=== PATIENT | male | born 1945 | race African-American/Black ===

== ENCOUNTER 2020-07-24 12:41 | Inpatient (IN) | payer MEDICARE ==
[2020-07-24 14:17] LABS: #Basophils 0.1 thou/uL (0.0-0.2); #Monocytes 0.5 thou/uL (0.11-0.59); #Neutrophils 2.4 thou/uL (1.40-6.50); %Basophils 1.1 % (0.0-1.0); %Eosinophils 0.6 % (0.0-10.0); %Lymphocytes 40.4 % (21.0-51.0); %Monocytes 9.7 % (0.0-10.0); %Neutrophils 48.1 % (42.0-75.0); Hemoglobin 16.1 g/dL (14.0-18.0); Mean Corpuscular HGB CONC 33.6 g/dL (32.0-36.0); Mean Corpuscular Hemoglobin 29.2 pg (27.0-31.0); Mean Corpuscular Volume 87.1 fL (78.0-98.0); Mean Platelet Volume 8.9 fL (7.4-10.4); Platelet Count 195 thou/uL (130-400); RBC Distribution Width 15.6 % (11.5-14.5); White Blood Cell (WBC) Count 5.1 thou/uL (4.8-10.8)
[2020-07-24 14:28] LABS: ALT (SGPT) 68 U/L (8-55); AST (SGOT) 26 U/L (5-34); Albumin 3.4 g/dL (3.4-4.8); Alkaline Phosphatase 128 U/L (40-110); Anion Gap 16 mmol/L (10-20); BUN (Urea Nitrogen) 18 mg/dL (8.4-25.7); Calc. Creatinine Clearance 0 mL/min (70-130); Calcium 8.4 mg/dL (7.8-10.44); Carbon Dioxide 26 mmol/L (23-31); Chloride 105 mmol/L (98-107); Globulin 3.3 g/dL (2.4-3.5); Glucose 202 mg/dL (83-110); Lipase 46 U/L (8-78); Potassium 4.2 mmol/L (3.5-5.1); Protein, Total 6.7 g/dL (5.8-8.1); Sodium 143 mmol/L (136-145)
[2020-07-24 14:57] LABS: CKMB 1.9 ng/mL (0-6.6)
[2020-07-24] MEDS ORDERED: Nitroglycerin 2% Ointment 1 INCH/1 GM Packet ONE (15:15)
[2020-07-24] MEDS ORDERED: Aspirin Chewable 81 MG TAB ONE (15:15)
[2020-07-24] MEDS ORDERED: Nitroglycerin 0.4 MG TAB (25 Tab Bottle) SL PRN (16:22)
--- NOTE | 2020-07-24 16:28 | PDOC.HHP ---
Hospitalist HPI Chest pain History of Present Illness: Patient is a 75-year-old male who presented via the emergency department. Malou white apparently may have some difficulty with his history. He has paperwork indicating he was admitted to [facility] from July 11 through July 20, 2000. He was diagnosed with Covid pneumonia and hypoxia. He was discharged to home. Currently he says he is doing fine. Denies any shortness of breath or chest pain. He says he only came to the ER because he was supposed to get a checkup and make sure he was taking the right medicines. According to the ER physician the patient reported chest pain. He denies having had any chest pain at this time. According to the triage notes the patient presented with worsening Covid symptoms with increased shortness of breath. He was wearing nasal cannula at 2 L which is apparently new from his recent hospitalization. ED Course: Patient's nurse noted that when she discontinued his oxygen he was able to m aintain his oxygen saturation but his respirations increased to 28/min. Also in the emergency department the patient received an aspirin and Nitropaste. His initial troponin was 0.042. Glucose was 202. EKG revealed inferior Q waves and a left anterior fascicular block Allergies/Adverse Reactions: Allergy/AdvReac Type Severity Reaction Status Date / Time No Known Drug Allergies Allergy Verified 11/15/13 17:45 Home Medications: Medication Instructions Recorded Confirmed Type Atorvastatin Calcium [Lipitor] 80 mg PO DAILY 11/15/13 11/15/13 History Clopidogrel Bisulfate [Plavix] 75 mg PO DAILY 11/15/13 11/15/13 History Insulin Lispro Protamin/Lispro 0 unit SC BID-AC 11/15/13 11/15/13 History [HumaLOG Mix 75/25 KwikPen] Lisinopril 40 mg PO BID 11/15/13 11/15/13 History Metoprolol Succinate [Toprol XL] 50 mg PO DAILY 11/15/13 11/15/13 History metFORMIN XR [Glucophage XR] 2,000 mg PO QPM-WM 11/15/13 11/15/13 History Aspirin 325 mg PO DAILY #0 tab 11/17/13 Rx Comments: Updated list: aspirin oral MonJul 24, 2020 16:15 VANESSA Kuo, Samira TABLET : Strength - 81 mg : ORAL Patient Dose: 1 tab(s) Oral once a day. atorvastatin MonJul 24, 2020 16:15 VANESSA Kuo Kimberly TABLET : Strength - 80 mg : ORAL Patient Dose: 80 mg Oral once a day. Plavix MonJul 24, 2020 16:15 VANESSA Kuo Kimberly TABLET : Strength - 75 mg : ORAL Patient Dose: 75 mg Oral once a day. metFORMIN MonJul 24, 2020 16:15 VANESSA Kuo Kimberly TABLET : Strength - 500 mg : ORAL Patient Dose: 1000 mg Oral 2 times a day. losartan MonJul 24, 2020 16:16 VANESSA Kuo Kimberly tablet : Strength - 25 mg : ORAL Patient Dose: 25 mg Oral 2 times a day. Toprol XL MonJul 24, 2020 16:17 VANESSA Kuo Kimberly tablet extended release 24 hr : Strength - 50 mg : ORAL Patient Dose: 50 mg Oral once a day. HumaLOG Mix 75-25 KwikPen MonJul 24, 2020 16:18 VANESSA Kuo Kimberly insulin pen : Strength - 100 unit/mL (75-25) : [3 mL(s)] : SUBCUTANEOUS Patient Dose: 45 units Subcutaneous once a day (in the morning).45u with breakfast, 20u at bedtime. Past History: PMHx: Coronary artery disease, diabetes mellitus, hypertension, hyperlipidemia, history of CVA PSHx: Coronary artery bypass graft x3 vessels in 1977 FHx: Hypertension, diabetes, stroke Social: History of tobacco abuse smoking 1 pack/day, social alcohol use. . Hospitalist Exam General Appearance: NAD, awake alert Neck: supple, symmetric, no JVD, no thyromegaly, no lymphadenopathy, no carotid bruit Heart: RRR, no murmur, no gallops, no rubs, normal peripheral pulses Respiratory: CTAB, no wheezes, no rales, no ronchi, normal chest expansion, no tachypnea, normal percussion Gastrointestinal: soft, non-tender, non-distended, normal bowel sounds, no palp able masses, no hepatomegaly, no splenomegaly, no bruit Extremities: no cyanosis, no clubbing, no edema Skin: normal turgor Neurological: cranial nerve grossly intact, normal sensation to touch, no weakness, no focal deficits, no new deficit Musculoskeletal: normal tone, normal strength, no muscle wasting Psychiatric: normal affect, normal behavior Hospitalist Results Result Diagrams: 07/24/20 13:20 07/24/20 13:20 Lab results: Laboratory Last Values WBC 5.1 thou/uL (4.8-10.8) 07/24/20 13:20 RBC 5.50 mill/uL (4.70-6.10) 07/24/20 13:20 Hgb 16.1 g/dL (14.0-18.0) 07/24/20 13:20 Hct 47.9 % (42.0-52.0) 07/24/20 13:20 MCV 87.1 fL (78.0-98.0) 07/24/20 13:20 MCH 29.2 pg (27.0-31.0) 07/24/20 13:20 MCHC 33.6 g/dL (32.0-36.0) 07/24/20 13:20 RDW 15.6 % (11.5-14.5) H 07/24/20 13:20 Plt Count 195 thou/uL (130-400) 07/24/20 13:20 MPV 8.9 fL (7.4-10.4) 07/24/20 13:20 Neutrophils % 48.1 % (42.0-75.0) 07/24/20 13:20 Lymphocytes % 40.4 % (21.0-51.0) 07/24/20 13:20 Monocytes % 9.7 % (0.0-10.0) 07/24/20 13:20 Eosinophils % 0.6 % (0.0-10.0) 07/24/20 13:20 Basophils % 1.1 % (0.0-1.0) H 07/24/20 13:20 Neutrophils # 2.4 thou/uL (1.40-6.50) 07/24/20 13:20 Lymphocytes # 2.0 thou/uL (1.20-3.40) 07/24/20 13:20 Monocytes # 0.5 thou/uL (0.11-0.59) 07/24/20 13:20 Eosinophils # 0.0 thou/uL (0.0-0.7) 07/24/20 13:20 Basophils # 0.1 thou/uL (0.0-0.2) 07/24/20 13:20 Sodium 143 mmol/L (136-145) 07/24/20 13:20 Potassium 4.2 mmol/L (3.5-5.1) 07/24/20 13:20 Chloride 105 mmol/L (98-107) 07/24/20 13:20 Carbon Dioxide 26 mmol/L (23-31) 07/24/20 13:20 Anion Gap 16 mmol/L (10-20) 07/24/20 13:20 BUN 18 mg/dL (8.4-25.7) 07/24/20 13:20 Creatinine 1.21 mg/dL (0.7-1.3) 07/24/20 13:20 Estimated GFR (MDRD) 71 07/24/20 13:20 Glucose 202 mg/dL (83-110) H 07/24/20 13:20 Calcium 8.4 mg/dL (7.8-10.44) 07/24/20 13:20 Total Bilirubin 1.0 mg/dL (0.2-1.2) 07/24/20 13:20 AST 26 U/L (5-34) 07/24/20 13:20 ALT 68 U/L (8-55) H 07/24/20 13:20 Alkaline Phosphatase 128 U/L (40-110) H 07/24/20 13:20 CK-MB (CK-2) 1.9 ng/mL (0-6.6) 07/24/20 13:20 Troponin I 0.042 ng/mL (< 0.028) H 07/24/20 13:20 Serum Total Protein 6.7 g/dL (5.8-8.1) 07/24/20 13:20 Albumin 3.4 g/dL (3.4-4.8) 07/24/20 13:20 Globulin 3.3 g/dL (2.4-3.5) 07/24/20 13:20 Albumin/Globulin Ratio 1.0 g/dL (1.2-2.2) L 07/24/20 13:20 Lipase 46 U/L (8-78) 07/24/20 13:20 EKG Status: image reviewed by me (Normal sinus rhythm. Left anterior fascicular block. Inferior Q waves.) Hospitalist H&P A/P (1) Chest pain Code(s): R07.9 - CHEST PAIN, UNSPECIFIED Status: Acute (2) Acute respiratory failure with hypoxia Code(s): J96.01 - ACUTE RESPIRATORY FAILURE WITH HYPOXIA Status: Acute (3) Coronary artery disease Code(s): I25.10 - ATHSCL HEART DISEASE OF [place] CORONARY ARTERY W/O ANG PCTRS Status: Acute (4) Hypertension Code(s): I10 - ESSENTIAL (PRIMARY) HYPERTENSION Status: Acute (5) Hyperlipidemia Code(s): E78.5 - HYPERLIPIDEMIA, UNSPECIFIED Status: Acute Plan: Chest pain: Patient's reporting of chest pain has apparently been variable in the emergency department. He told the ED physician that he was having some chest pain. He told the ER nurse and me that he did not have any chest pain. Attempted to call his to see if we can get some clarity but the number we have in the computer is not working. He has an equivocal troponin that is indeterminate. Apparently this was true during his recent admission to [facility] as well. Patient will be placed in observation status as he has a heart score of around 5. We will check serial troponins. Keep him on telemetry. Given his Covid positive status will not anticipate performing a stress test. In the setting of a patient who had coronary bypass graft in 1977 there are certainly possibilities of some underlying coronary disease. His EKG appears to show some chronic abnormalities although cannot confirm that the left anterior fascicular block is chronic. If the patient rules out for ischemia and has no further evidence of chest pain would suspect he can be discharged from that perspective. Acute hypoxic respiratory failure: Part of his recent Covid pneumonia diagnosis. Apparently he was discharged on the first from [facility] on 2 L nasal cannula. Patient apparently maintains his saturations adequately without oxygen but has some increased work of breathing. We will continue to monitor him overnight on the oxygen. If he maintains his sats adequately can likely discharge on the same 2 L nasal cannula. Coronary artery disease: Continue aspirin, statin. Hypertension: Continue p.o. beta-erasto and ARB. Diabetes mellitus: Continue with his home dose of Metformin and insulin. Diabetic diet. Continue Accu-Cheks.
[2020-07-24 16:47] LABS: Troponin I 0.045 ng/mL (< 0.028)
--- NOTE | 2020-07-24 17:00 | RAD ---
PORTABLE CHEST: Date: 07/24/2020 HISTORY: Worsening COVID symptoms. COMPARISON: 10/30/2014 study is the most recent exam available for comparison. FINDINGS: Heart size is borderline considering portable technique with postop sternotomy change. Bilateral lung infiltrates are seen. IMPRESSION: Bilateral lung infiltrates consistent with COVID pneumonia. POS: OFF
[2020-07-24] MEDS ORDERED: Dextrose 5% in Water 1,000 ML IV PRN (17:03)
[2020-07-24] MEDS ORDERED: Dextrose 50% Abboject 50 ML SYRINGE SLOW IVP PRN (17:03)
[2020-07-24] MEDS: Metoprolol Tartrate 25 MG TAB PO SCH (20:07)
[2020-07-24] MEDS: Acetaminophen 325 MG TAB PO PRN (20:07)
[2020-07-24 20:08] LABS: Troponin I 0.036 ng/mL (< 0.028)
[2020-07-24 22:43] VITALS: BMI 28.1
[2020-07-25] MEDS: HumaLOG 300 UNITS/3 ML VIAL SC PRN ×4 (10:46→21:12)
[2020-07-25] MEDS: Enoxaparin Sodium 40 MG/0.4 ML SYRINGE SC SCH (10:48)
[2020-07-25] MEDS: Aspirin Chewable 81 MG TAB PO SCH (10:48)
[2020-07-25] MEDS: Metoprolol Tartrate 25 MG TAB PO SCH ×2 (10:49→20:06)
[2020-07-25] MEDS: Clopidogrel Bisulfate 75 MG TAB PO SCH (10:49)
--- NOTE | 2020-07-25 16:33 | PDOC.HOSPP ---
- Subjective Encounter Date: 07/25/20 Encounter Time: 14:45 Subjective: awake, responds to questions but is not accurate. is eating his food, not in distress, on nasal canula O2, moves all extremities - Objective Vital Signs & Weight: Vital Signs (12 hours) Temp Pulse Resp BP BP Pulse Ox 07/25/20 16:00 98.4 F 63 18 144/76 H 100 07/25/20 11:16 98.0 F 71 18 155/87 H 100 07/25/20 08:00 98.5 F 74 18 124/77 99 07/25/20 07:47 98.5 F 74 18 124/77 99 Weight Admit Weight 174 lb Weight 174 lb 9.698 oz I&O: 07/24/20 07/25/20 07/26/20 06:59 06:59 06:59 Intake Total 240 250 Output Total 500 250 Balance -260 0 Result Diagrams: 07/24/20 13:20 07/24/20 13:20 Additional Labs: Accuchecks 07/25/20 07/25/20 07/25/20 15:58 11:16 07:46 POC Glucose 151 H 209 H 216 H 07/24/20 20:35 POC Glucose 106 H Hospitalist ROS - Medication Medications: Active Medications Generic Name Dose Route Start Last Admin Trade Name Freq PRN Reason Stop Dose Admin Acetaminophen 650 mg 07/24/20 16:20 07/24/20 20:07 Acetaminophen 325 Mg Tab PO 650 mg Q4H PRN Administration Headache/Fever/Mild Pain (1-3) Aspirin 81 mg 07/25/20 09:00 07/25/20 10:48 Aspirin Chewable 81 Mg Tab PO 81 mg DAILY ENRRIQUE Administration Clopidogrel Bisulfate 75 mg 07/25/20 09:00 07/25/20 10:49 Clopidogrel Bisulfate 75 Mg Tab PO 75 mg DAILY ENRRIQUE Administration Enoxaparin Sodium 40 mg 07/25/20 09:00 07/25/20 10:48 Enoxaparin Sodium 40 Mg/0.4 Ml Syringe SC 40 mg 0900 ENRRIQUE Administration Insulin Human Lispro 0 units 07/24/20 17:03 07/25/20 12:48 Humalog 300 Units/3 Ml Vial SC 3 unit .MILD SLIDING SCALE PRN Administration Mild Correctional Scale Metoprolol Tartrate 25 mg 07/24/20 21:00 07/25/20 10:49 Metoprolol Tartrate 25 Mg Tab PO 25 mg BID ENRRIQUE Administration Hospitalist Exam Vitals: Vital Signs (12 hours) Temp Pulse Resp BP BP Pulse Ox 07/25/20 16:00 98.4 F 63 18 144/76 H 100 07/25/20 11:16 98.0 F 71 18 155/87 H 100 07/25/20 08:00 98.5 F 74 18 124/77 99 07/25/20 07:47 98.5 F 74 18 124/77 99 Weight Admit Weight 174 lb Weight 174 lb 9.698 oz General Appearance: awake alert Eye: PERRL, anicteric sclera ENT: no oropharyngeal lesions, moist mucosa Neck: supple, no JVD Heart: RRR, no murmur Respiratory: no wheezes, no rales, rhonchi Gastrointestinal: soft, non-tender, non-distended, normal bowel sounds Extremities: no cyanosis, no edema Neurological: cranial nerve grossly intact, no focal deficits Hosp A/P (1) Acute respiratory failure with hypoxia Code(s): J96.01 - ACUTE RESPIRATORY FAILURE WITH HYPOXIA Status: Acute (2) Pneumonia due to COVID-19 virus Code(s): U07.1 - COVID-19; J12.82 - PNEUMONIA DUE TO CORONAVIRUS DISEASE 2019 Status: Acute (3) DM type 2 (diabetes mellitus, type 2) Status: Chronic Qualifiers: 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 transplanted heart: [place] heart Associated angina: without angina Qualified Code(s): I25.810 - Atherosclerosis of coronary artery bypass graft(s) without angina pectoris (6) Hyperlipidemia Code(s): E78.5 - HYPERLIPIDEMIA, UNSPECIFIED Status: Chronic Qualifiers: Hyperlipidemia type: unspecified Qualified Code(s): E78.5 - Hyperlipidemia, unspecified (7) Hypertension Code(s): I10 - ESSENTIAL (PRIMARY) HYPERTENSION Status: Chronic Qualifiers: Hypertension type: essential hypertension Qualified Code(s): I10 - Essential (primary) hypertension (8) Cerebrovascular accident Code(s): I63.9 - CEREBRAL INFARCTION, UNSPECIFIED Status: Chronic Qualifiers: CVA mechanism: thrombosis Laterality of affected vessel: left (9) Acute encephalopathy Code(s): G93.40 - ENCEPHALOPATHY, UNSPECIFIED Status: Acute Plan: likely sec to covid 19 virus - Plan will get CT brain wo contrast, he is not fully oriented, unclear his baseline tried calling with all the numbers available on [employer] and [phone] provided by staff, none which work staff to ascertain from if he is at baseline, has prior h/o cva in the left internal capsule he was hospitalized at [facility] between jul 11 and , has home O2, he is not sure if he has alb inh and steroids continue asp, plavix, lipitor, toprol xl, losartan, humalog 75/25 and metformin as before hemostable mobilize as tolerated with PT dc plan based on confirmation of cognitive issues with and patients baseline.
--- NOTE | 2020-07-25 17:42 | CT ---
CT OF THE BRAIN WITHOUT CONTRAST: 07/25/20 INDICATION: History of CVA, encephalopathy and COVID positive diagnosis. COMPARISON: MR of the brain without contrast dated 11/16/13. FINDINGS: There is generalized cerebral and cerebellar atrophy. There are remote lacunar infarctions involving the left caudate head, bilateral globus pallidi as well as the paramedian luis. There is moderate ch ronic small vessel white matter ischemic change. Septum pellucidum and third ventricle are midline. N o definite acute infarct, hemorrhage, or hydrocephalus is present. Skull and intracranial soft tissue s appear within normal limits. IMPRESSION: 1. No acute intracranial abnormality. 2. Chronic ischemic change as above. POS: BH
[2020-07-25] MEDS: Acetaminophen 325 MG TAB PO PRN (20:06)
[2020-07-26] MEDS: HumaLOG 300 UNITS/3 ML VIAL SC PRN ×4 (06:06→21:24)
[2020-07-26] MEDS: Enoxaparin Sodium 40 MG/0.4 ML SYRINGE SC SCH (10:14)
[2020-07-26] MEDS: Losartan 25 MG TAB PO SCH (10:14)
[2020-07-26] MEDS: Clopidogrel Bisulfate 75 MG TAB PO SCH (10:14)
[2020-07-26] MEDS: Aspirin Chewable 81 MG TAB PO SCH (10:14)
[2020-07-26] MEDS: Metoprolol Tartrate 25 MG TAB PO SCH ×2 (10:15→21:22)
--- NOTE | 2020-07-26 15:20 | PDOC.HOSPP ---
- Subjective Encounter Date: 07/26/20 Encounter Time: 13:30 Subjective: feels good, no complaints has not ambulated yet, says he can walk with walker - Objective Vital Signs & Weight: Vital Signs (12 hours) Temp Pulse Resp BP BP Pulse Ox 07/26/20 11:40 97.5 F L 69 22 H 124/67 100 07/26/20 09:00 98.1 F 79 20 130/71 100 07/26/20 08:00 98.1 F 79 20 130/71 100 07/26/20 04:06 100 07/26/20 04:00 97.9 F 67 16 141/85 H 96 Weight Admit Weight 174 lb Weight 174 lb 9.698 oz I&O: 07/25/20 07/26/20 07/27/20 06:59 06:59 06:59 Intake Total 240 1150 Output Total 500 1580 Balance -260 -430 Result Diagrams: 07/24/20 13:20 07/24/20 13:20 Additional Labs: Accuchecks 07/26/20 07/26/20 07/25/20 11:39 05:52 20:10 POC Glucose 271 H 187 H 279 H 07/25/20 15:58 POC Glucose 151 H Hospitalist ROS - Medication Medications: Active Medications Generic Name Dose Route Start Last Admin Trade Name Charbelq PRN Reason Stop Dose Admin Acetaminophen 650 mg 07/24/20 16:20 07/25/20 20:06 Acetaminophen 325 Mg Tab PO 650 mg Q4H PRN Administration Headache/Fever/Mild Pain (1-3) Aspirin 81 mg 07/25/20 09:00 07/26/20 10:14 Aspirin Chewable 81 Mg Tab PO 81 mg DAILY ENRRIQUE Administration Clopidogrel Bisulfate 75 mg 07/25/20 09:00 07/26/20 10:14 Clopidogrel Bisulfate 75 Mg Tab PO 75 mg DAILY ENRRIQUE Administration Enoxaparin Sodium 40 mg 07/25/20 09:00 07/26/20 10:14 Enoxaparin Sodium 40 Mg/0.4 Ml Syringe SC 40 mg 0900 ENRRIQUE Administration Insulin Human Lispro 0 units 07/24/20 17:03 07/26/20 12:38 Humalog 300 Units/3 Ml Vial SC 4 unit .MILD SLIDING SCALE PRN Administration Mild Correctional Scale Losartan Potassium 50 mg 07/26/20 09:00 07/26/20 10:14 Losartan 25 Mg Tab PO 50 mg DAILY ENRRIQUE Administration Metoprolol Tartrate 25 mg 07/24/20 21:00 07/26/20 10:15 Metoprolol Tartrate 25 Mg Tab PO 25 mg BID ENRRIQUE Administration Hospitalist Exam Vitals: Vital Signs (12 hours) Temp Pulse Resp BP BP Pulse Ox 07/26/20 11:40 97.5 F L 69 22 H 124/67 100 07/26/20 09:00 98.1 F 79 20 130/71 100 07/26/20 08:00 98.1 F 79 20 130/71 100 07/26/20 04:06 100 07/26/20 04:00 97.9 F 67 16 141/85 H 96 Weight Admit Weight 174 lb Weight 174 lb 9.698 oz General Appearance: awake alert Eye: PERRL, anicteric sclera ENT: no oropharyngeal lesions, moist mucosa Neck: supple, no JVD Heart: RRR, no murmur Respiratory: no wheezes, no rales Gastrointestinal: soft, non-tender, non-distended, normal bowel sounds Extremities: no cyanosis, no edema Neurological: cranial nerve grossly intact, no focal deficits Hosp A/P (1) Acute respiratory failure with hypoxia Code(s): J96.01 - ACUTE RESPIRATORY FAILURE WITH HYPOXIA Status: Acute (2) Pneumonia due to COVID-19 virus Code(s): U07.1 - COVID-19; J12.82 - PNEUMONIA DUE TO CORONAVIRUS DISEASE 2019 Status: Acute (3) DM type 2 (diabetes mellitus, type 2) Status: Chronic Qualifiers: 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 transplanted heart: [place] heart Associated angina: without angina Qualified Code(s): I25.810 - Atherosclerosis of coronary artery bypass graft(s) without angina pectoris (6) Hyperlipidemia Code(s): E78.5 - HYPERLIPIDEMIA, UNSPECIFIED Status: Chronic Qualifiers: Hyperlipidemia type: unspecified Qualified Code(s): E78.5 - Hyperlipidemia, unspecified (7) Hypertension Code(s): I10 - ESSENTIAL (PRIMARY) HYPERTENSION Status: Chronic Qualifiers: Hypertension type: essential hypertension Qualified Code(s): I10 - Essential (primary) hypertension (8) Cerebrovascular accident Code(s): I63.9 - CEREBRAL INFARCTION, UNSPECIFIED Status: Chronic Qualifiers: CVA mechanism: thrombosis Laterality of affected vessel: left (9) Acute encephalopathy Code(s): G93.40 - ENCEPHALOPATHY, UNSPECIFIED Status: Acute - Plan CT brain wo contrast shows no ac cva, has shrinking of his cerebrum and old cva in left caudate, globus pallidus and luis area, no ac infarct. spoke to [phone] and gave full updates, she cant come to pick him up today and her son will pick him up in am, is recovering from covid. he was hospitalized at [facility] jul 11 and , has home O2, mentions that steroids kind off put him off balance with talking inappropriately, incontinence etc. continue asp, plavix, lipitor, toprol xl, losartan, humalog 75/25 and metformin as before hemostable mobilize as tolerated with PT dc plan in am, CM to activate his tx HH with PT/OT in am, PCP is
[2020-07-26] MEDS: Acetaminophen 325 MG TAB PO PRN (21:21)
[2020-07-27] MEDS: HumaLOG 300 UNITS/3 ML VIAL SC PRN ×2 (05:58→10:55)
[2020-07-27] MEDS: Enoxaparin Sodium 40 MG/0.4 ML SYRINGE SC SCH (09:45)
[2020-07-27] MEDS: Clopidogrel Bisulfate 75 MG TAB PO SCH (09:46)
[2020-07-27] MEDS: Aspirin Chewable 81 MG TAB PO SCH (09:46)
[2020-07-27] MEDS: Losartan 25 MG TAB PO SCH (09:46)
[2020-07-27] MEDS: Metoprolol Tartrate 25 MG TAB PO SCH (09:46)
[2020-07-27 10:59] VITALS: BP 121/57; TEMP 97.8
--- NOTE | 2020-07-27 17:29 | DIS ---
DATE OF ADMISSION: 07/26/2020 DATE OF DISCHARGE: 07/27/2020 DISCHARGE DISPOSITION: To home. PRIMARY DISCHARGE DIAGNOSES: Acute metabolic encephalopathy secondary to COVID-19 virus, pneumonia due to COVID-19 virus, acute respiratory failure with hypoxia, needing 2 L nasal cannula oxygen secondary to COVID-19 pneumonia. SECONDARY DISCHARGE DIAGNOSES: Diabetes mellitus type 2, coronary artery disease, dyslipidemia, hypertension, and prior history of CVA. PROCEDURES DONE DURING HOSPITALIZATION: CT brain without contrast done showed no acute CVA. He has signs of atrophy of his cerebrum, and old CVA was seen in the left caudate, globus pallidus, and luis area with no acute infarct noted. HOSPITAL COURSE: The patient was hospitalized from July 11 to July 20 at [facility] in [place] for COVID-19 pneumonia and was prescribed home oxygen along with [facility] arranged. Prior to Home Health resuming service, the patient was rehospitalized here for acute metabolic encephalopathy with being concerned for the steroids causing it. In view of this, his steroids were discontinued. He was closely monitored on the floor. He is saturating well with current oxygen. Case Management consultation was requested for activating his [facility] with PT and OT. I have given complete updates to the patient's , Ms. Mcnulty, on the and the plan was to discharge him today when his son will come to pick him up today. Please note, I have seen and examined the patient on the day of discharge. Prior to discharge, he is ambulating and eating well. Job ID: [id number]
== END 2020-07-27 13:23 | disposition home health service (06) | DRG 177 ==
LOC: SUATTDRO 12:41 → ERS 12:41 → 2SW 15:23 → OBSVTOIN 07-26 11:54
PROVIDERS: ADMIT Internal Medicine; ATTEND Internal Medicine
DX: U07.1 COVID-19 (principal); J96.01 Acute respiratory failure with hypoxia; J12.82 Pneumonia due to coronavirus disease 2019; G93.41 Metabolic encephalopathy; I25.810 Atherosclerosis of coronary artery bypass graft(s) without angina pectoris; E11.9 Type 2 diabetes mellitus without complications; I10 Essential (primary) hypertension; E78.5 Hyperlipidemia, unspecified; Z79.82 Long term (current) use of aspirin; Z79.02 Long term (current) use of antithrombotics/antiplatelets; Z79.4 Long term (current) use of insulin; Z86.73 Personal history of transient ischemic attack (TIA), and cerebral infarction without residual deficits; Z95.1 Presence of aortocoronary bypass graft; Z83.3 Family history of diabetes mellitus; Z82.3 Family history of stroke; Z82.49 Family history of ischemic heart disease and other diseases of the circulatory system; F17.210 Nicotine dependence, cigarettes, uncomplicated
CPT/HCPCS: 36416; 70450; 71045; 80053; 82553; 83690; 84484; 85025; 93005; 94760; 96372; G0378; J1650; J1815